=== PATIENT | male | born 1935 | race Caucasian/White ===

== ENCOUNTER → 2017-02-21 | Outpatient (CLI) | payer MEDICARE, BC ==
--- NOTE | 2017-02-21 12:03 | RADRPT ---
PROCEDURE: XR Pelvis and Hips. CLINICAL INDICATION: Pelvic pain. Bilateral hip pain. TECHNIQUE: Five views. Frontal pelvis. Frontal and lateral right hip. Frontal and lateral left hip. COMPARISON: No prior studies are available for comparison. FINDINGS: There is no fracture or dislocation. The soft tissues are normal. There are degenerative changes of the hips with osteophytes and joint space narrowing. There is fusion of the L4 and L5 vertebrae with lateral syndesmophytes noted. There may also been fu margarette of the sacroiliac joints. There is no lytic or blastic lesion. Multiple surgical clips are present in the pelvis. IMPRESSION: 1. Surgical clips in the pelvis. 2. 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 3. Moderate degenerative changes of both hips. 4. Otherwise unremarkable study. RPTAT: QQ .Wm Elder MD, MD Date Time Electronically viewed and signed by .Wm lEder MD, on 02/21/2017 12:03 .R/
--- NOTE | 2017-02-22 10:14 | HKNOTE ---
DATE OF SERVICE: 02/21/2017 MAIN COMPLAINT: Pain in both hips. HISTORY OF MAIN COMPLAINT: The patient is an 81-year-old male who complains of pain in the area of both sacroiliac joints. He has had the pain for about 6 to 8 months. He indicates that the pain is "very mild". He also has a "balance problem." He thought the 2 might be connected. He emphasizes that the pain is very mild. He walks 2 miles a day with his . 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 He wonders if there is a ny "connection". He does not get pain in the lower back at the present time. PRESENT COMPLAINTS: The pain in the area of both sacroiliac joints equally affected. Pain is descr ibed as "very mild". Pain is not aggravated by coughing, sneezing, walking, straining at stool, devyn ghtbearing. He does not run. He lives in a tri-level house and he has no problem with stairs. He gets pain at night and he takes Restoril, which gets him through. He does not use a walking aid. W hen he is not going for long walks he works out in a gym (his is currently ill). He does not l imp. His leg lengths were equal. He can clip his toenails and tie his shoelaces. PAST ORTHOPEDIC HISTORY: See attached notes. PRIOR CORTISONE INTAKE: None. ALCOHOL INTAKE: A glass of red wine with dinner or beer or Sangria. OTHER JOINT PROBLEMS: None. BLOOD TESTS FOR ARTHRITIS: None. PRIOR INJURIES TO HIPS OR KNEES: None. 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 PAST MEDICAL HISTORY 1. Hypertension. 2. Asthma. 3. Prostate cancer. 4. Harmony-Rich. PAST SURGICAL HISTORY: 1. Adenoids and tonsils. 2. Appendectomy. 3. Vasectomy. 4. Rhinoplasty. 5. Radical prostatectomy for prostate cancer. 6. Partial gastrectomy. 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 8. Rotator cuff tear repair. 9. Harmony-Rich treated with LVLRX light (intravenous laser treatment). DRUG ALLERGIES: COCAINE SOLUTION. MEDICATIONS: See attached list. SYSTEMS REVIEW: Small stomach, poor appetite. Urine frequency. Gait disturbance, hypertension, pn eumonia as an infant, leakage of urine, hemorrhoids, otherwise negative. HABITS: The patient stopped smoking in 1969. Alcohol intake as above. EQUIPMENT TESTER: Dr. Femi Glasgow [id number] [facility], [facility] [address] [id number]. PHYSICAL EXAMINATION: GENERAL: A remarkably youthful 81-year-old male. He walks without a walking aid. His gait is norm al. VITAL SIGNS: Height 5 feet 9 inches, weight 133 pounds, blood pressure 125/65, temperature 98.1. BACK: Moderate stiffness of the lumbar spine in all directions without pain. NEUROLOGICAL: Normal with deep tendon reflexes. Right knee plus, left knee plus, right ankle plus, left ankle plus. Straight leg raising test negative bilaterally at 85 degrees. HIPS: Both hips have full range of motion without pain. KNEES: Both knees are clinically normal. IMAGING: Plain x-rays of his pelvis and hips obtained today show approximately 50% narrowing of bot h hip joint spaces. The remaining space is even. There are no osteophytes, subchondral cyst format ion or subchondral sclerosis. Sacroiliac joints look slightly irregular or normal. There were 2 levels of the lumbar spine seen a nd these pictures show the appearance of ankylosing spondylitis. DISCUSSION: The patient is advised that his pain entirely in the wrong place to be a hip disorder. It is very likely that he has some form of mild lumbar radiculopathy. When asked about getting an MRI scan of the lumbar spine he indicated that his pain is so mild that he has no interest in pursui ng it any further "if my hips are normal". Patient will continue with his normal activities. He will call if and when he has any further probl ems related to his current complaints or new orthopedic problem. Dictated By: YOSI LANG/FREIDA Conf#: [id number] DID#: [id number]
== END | disposition home or self-care (01) ==
LOC: HKI 11:14
DX: M25.552 Pain in left hip (principal); M25.551 Pain in right hip; I10 Essential (primary) hypertension; J45.909 Unspecified asthma, uncomplicated; Z85.46 Personal history of malignant neoplasm of prostate; B27.00 Gammaherpesviral mononucleosis without complication
CPT/HCPCS: 73523; G0463